=== PATIENT | male | born 1935 | race Hispanic/Latino ===

== ENCOUNTER 2018-06-21 14:25 | Emergency (ER) | payer MEDICARE ==
[2018-06-21] MEDS ORDERED: MECLIZINE HCL 25 MG TABLET ONE (15:15)
[2018-06-21] MEDS ORDERED: ONDANSETRON HCL 4 MG/2 ML VIAL ONE (15:16)
[2018-06-21 15:25] LABS: BASOPHILS % (AUTO) 1.1 % (0.0-5.0); HEMATOCRIT 34.5 % (42-54); LYMPHOCYTES % (AUTO) 12.8 % (21.0-51.0); MEAN CORPUSCULAR HEMOGLOBIN 29.7 pg (27.0-33.0); MEAN CORPUSCULAR HGB CONC 33.7 g/dL (32.0-36.0); MONOCYTES % (AUTO) 7.4 % (3.0-13.0); NEUTROPHILS % (AUTO) 77.7 % (40.0-77.0); PLATELET COUNT (AUTO) 183 K/uL (130-400); RED BLOOD CELL COUNT(AUTO) 3.92 MIL/uL (4.50-6.20); RED CELL DISTRIBUTION WIDTH 13.9 % (11.0-15.5); WHITE BLOOD COUNT (AUTO) 8.5 K/uL (4.8-10.8)
[2018-06-21 15:33] LABS: CREATININE 1.1 mg/dL (0.5-1.5)
[2018-06-21 15:38] LABS: ALBUMIN 3.3 g/dL (3.5-5.0); BILIRUBIN,TOTAL 0.7 mg/dL (0.2-1.0); TOTAL PROTEIN, SERUM 6.9 g/dL (6.0-8.3)
== END 2018-06-21 17:57 | disposition home or self-care (01) ==
LOC: EDH 14:25
DX: R42 Dizziness and giddiness (principal); I10 Essential (primary) hypertension; R53.1 Weakness; E11.9 Type 2 diabetes mellitus without complications; I25.10 Atherosclerotic heart disease of native coronary artery without angina pectoris; Z79.899 Other long term (current) drug therapy; Z72.0 Tobacco use
CPT/HCPCS: 36415; 70450; 71045; 80053; 82550; 84484; 85025; 93005; 96374; 99285; J2405

== ENCOUNTER 2021-08-17 00:40 | Observation (INO) | payer OTHER, MEDICARE ==
[~2021-08-17] VITALS: Ht 167.6 cm; Wt 59.4 kg
[2021-08-17 01:04] LABS: BASOPHILS % (AUTO) 1.1 % (0.0-5.0); EOSINOPHILS % (AUTO) 4.1 % (0.0-8.0); HEMATOCRIT 35.9 % (42-54); MEAN CORPUSCULAR HGB CONC 33.4 g/dL (32.0-36.0); MEAN CORPUSCULAR VOLUME 86.7 fL (79-99); MONOCYTES % (AUTO) 7.6 % (3.0-13.0); NEUTROPHILS % (AUTO) 68.7 % (40.0-77.0); PLATELET COUNT (AUTO) 130 K/uL (130-400); RED BLOOD CELL COUNT(AUTO) 4.14 MIL/uL (4.50-6.20); RED CELL DISTRIBUTION WIDTH 13.7 % (11.0-15.5); WHITE BLOOD COUNT (AUTO) 6.3 K/uL (4.8-10.8)
[2021-08-17 01:13] LABS: CREATININE 1.1 mg/dL (0.5-1.5); POTASSIUM 3.2 mmol/L (3.5-5.1)
[2021-08-17 01:20] LABS: ALBUMIN 2.9 g/dL (3.5-5.0); BILIRUBIN,TOTAL 0.6 mg/dL (0.2-1.0); TOTAL PROTEIN, SERUM 6.4 g/dL (6.0-8.3)
[2021-08-17] MEDS ORDERED: NITROGLYCERIN 1GM OINT 1 INCH/1GM TD ONE ×2 (01:30)
[2021-08-17] MEDS ORDERED: POTASSIUM BICARB/CIT AC 25 MEQ TABLET.EFF PO ONE (01:30)
[2021-08-17 03:00] VITALS: BP 150/86
[2021-08-17 08:00] VITALS: BP 154/70
[2021-08-17] MEDS ORDERED: ASPIRIN 81 MG EC TAB PO SCH (09:00)
[2021-08-17] MEDS ORDERED: ENOXAPARIN SODIUM 1 MG/KG SQ SCH (09:00)
[2021-08-17] MEDS ORDERED: CLOPIDOGREL 75MG TAB PO SCH (09:00)
[2021-08-17 11:50] LABS: EOSINOPHILS % (AUTO) 3.5 % (0.0-8.0); HEMATOCRIT 36.8 % (42-54); LYMPHOCYTES % (AUTO) 22.1 % (21.0-51.0); MEAN CORPUSCULAR HGB CONC 33.7 g/dL (32.0-36.0); MEAN CORPUSCULAR VOLUME 86.2 fL (79-99); MONOCYTES % (AUTO) 7.6 % (3.0-13.0); NEUTROPHILS % (AUTO) 65.7 % (40.0-77.0); PLATELET COUNT (AUTO) 127 K/uL (130-400); RED BLOOD CELL COUNT(AUTO) 4.27 MIL/uL (4.50-6.20); RED CELL DISTRIBUTION WIDTH 13.6 % (11.0-15.5); WHITE BLOOD COUNT (AUTO) 6.9 K/uL (4.8-10.8)
[2021-08-17 11:59] VITALS: BP 161/54
[2021-08-17 12:05] LABS: ALBUMIN 3.1 g/dL (3.5-5.0); BILIRUBIN,TOTAL 0.8 mg/dL (0.2-1.0); CREATININE 1.1 mg/dL (0.5-1.5); TOTAL PROTEIN, SERUM 6.8 g/dL (6.0-8.3)
[2021-08-17 16:00] VITALS: BP 185/65
[2021-08-17] MEDS ORDERED: ENOXAPARIN SODIUM 60 MG/0.6 ML SQ SCH (21:00)
== END 2021-08-17 19:50 | disposition home or self-care (01) ==
LOC: EDH 00:40 → EDHIP 02:16 → 4BH 02:55
PROVIDERS: ADMIT Internal Medicine; ATTEND Internal Medicine
DX: R07.89 Other chest pain (principal); I24.9 Acute ischemic heart disease, unspecified; I25.110 Atherosclerotic heart disease of native coronary artery with unstable angina pectoris; E11.9 Type 2 diabetes mellitus without complications; I10 Essential (primary) hypertension; E78.5 Hyperlipidemia, unspecified; E78.00 Pure hypercholesterolemia, unspecified; Z86.73 Personal history of transient ischemic attack (TIA), and cerebral infarction without residual deficits; Z95.1 Presence of aortocoronary bypass graft; Z79.899 Other long term (current) drug therapy
CPT/HCPCS: 36415; 71045; 80053 ×2; 82550; 83874; 84484 ×3; 85025 ×2; 93005; 99285; G0378 ×18